=== PATIENT | male | born 1985 | race Caucasian/White ===

== ENCOUNTER 2022-07-22 11:07 | Emergency (ER) | payer OTHER ==
[~2022-07-22] VITALS: Ht 177.8 cm; Wt 81.6 kg
[2022-07-22] MEDS ORDERED: DEXAMETHASONE SOD PHOS 10 MG/1 ML VIAL IM STA (11:39)
[2022-07-22] MEDS ORDERED: HYDROCODONE/APAP 5MG-325MG TAB PO ONE (11:45)
[2022-07-22] MEDS ORDERED: KETOROLAC TROMETHAMINE 60 MG/2 ML VIAL IM ONE (11:45)
[2022-07-22] MEDS ORDERED: KETOROLAC TROMETHAMINE 60 MG/2 ML VIAL ONE (11:53)
[2022-07-22] MEDS ORDERED: DEXAMETHASONE SOD PHOS 10 MG/1 ML VIAL ONE (11:53)
[2022-07-22] MEDS ORDERED: HYDROCODONE/APAP 5MG-325MG TAB ONE (11:55)
[2022-07-22] MEDS ORDERED: ACETAMINOPHEN-1 EAC4 PO (12:47)
== END 2022-07-22 12:50 | disposition home or self-care (01) ==
LOC: ER 11:21
DX: M43.16 Spondylolisthesis, lumbar region (principal); X50.0XXA Overexertion from strenuous movement or load, initial encounter; Y92.89 Other specified places as the place of occurrence of the external cause
CPT/HCPCS: 72100; 99283; J1100; J1885